=== PATIENT | male | born 1980 | race Two or more races ===

== ENCOUNTER 2020-03-29 01:04 | Emergency (ER) | payer OTHER ==
[~2020-03-29] VITALS: Ht 185.4 cm; Wt 90.7 kg
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
[2020-03-29] MEDS ORDERED: OLANZAPINE 5 MG TABLET ONE (01:39)
[2020-03-29] MEDS ORDERED: CEPHALEXIN MONOHYDRATE 500 MG CAPSULE PO ONE ×2 (01:39→01:41)
[2020-03-29 01:44] LABS: BASOPHILS # (AUTO) 0.2 /CMM (0.0-0.2); BASOPHILS % (AUTO) 2.3 % (0.0-2.0); EOSINOPHILS % (AUTO) 6.2 % (0.0-6.0); HEMATOCRIT 40 % (39-51); HEMOGLOBIN 13.5 g/dL (13.5-17.5); LYMPHOCYTES # (AUTO) 0.9 /CMM (0.8-4.8); LYMPHOCYTES % (AUTO) 11.1 % (20.0-44.0); MEAN CORPUSCULAR HGB CONC 33 g/dl (31.0-36.0); MEAN CORPUSCULAR VOLUME 93 fL (80-96); MONOCYTES # (AUTO) 0.4 /CMM (0.1-1.30); MONOCYTES % (AUTO) 4.8 % (2.0-12.0); NEUTROPHILS # (AUTO) 6.3 /CMM (1.8-8.9); NEUTROPHILS % (AUTO) 75.6 % (43.0-81.0); PLATELET COUNT (AUTO) 393 /CMM (150-450); RED BLOOD CELL COUNT(AUTO) 4.37 MIL/uL (4.5-6.0); WHITE BLOOD COUNT (AUTO) 8.3 K/uL (4.3-11.0)
[2020-03-29] MEDS: CEPHALEXIN MONOHYDRATE 500 MG CAPSULE PO ONE (01:46)
[2020-03-29] MEDS: OLANZAPINE 5 MG TABLET PO ONE (01:46)
[2020-03-29 01:51] LABS: CALCIUM, SERUM 8.5 mg/dL (8.5-10.1); CARBON DIOXIDE 30 mmol/L (21-32); CHLORIDE 105 mmol/L (98-107); GLUCOSE 90 mg/dL (74-106); POTASSIUM 4.4 mmol/L (3.5-5.1); SODIUM SERUM 142 mmol/L (136-145); UREA NITROGEN, BLOOD 25 mg/dL (7-18)
[2020-03-29 01:57] LABS: ALANINE AMINOTRANSFERASE 30 U/L (12-78); ALBUMIN 3.4 g/dL (3.4-5.0); ALCOHOL, BLOOD < 3 mg/dL (0-0); ALKALINE PHOSPHATASE 104 U/L (46-116); ASPARTATE AMINOTRANSFERASE 40 U/L (15-37); BILIRUBIN,DIRECT 0.1 mg/dL (0.0-0.2); BILIRUBIN,TOTAL 0.4 mg/dL (0.2-1.0); TOTAL PROTEIN, SERUM 6.9 g/dL (6.4-8.2)
[2020-03-29 02:01] LABS: ACETAMINOPHEN < 10 ug/ml (10-30)
--- NOTE | 2020-03-29 02:02 | NUR ---
PATIENT WALKED TO THE RESTROOM W/ STEADY GAIT.
--- NOTE | 2020-03-29 02:18 | NUR ---
URINE COLLECTED AND SENT TO THE LAB.
[2020-03-29 02:27] LABS: BILIRUBIN,URINE NEGATIVE (NEGATIVE); BLOOD, URINE NEGATIVE Ery/uL (NEGATIVE); COLOR,URINE YELLOW (YELLOW); LEUKOCYTE ESTERASE ,URINE NEGATIVE (NEGATIVE); NITRITE, URINE NEGATIVE (NEGATIVE); PROTEIN,URINE NEGATIVE (NEGATIVE); UGLUCOSE NEGATIVE (NEGATIVE)
--- NOTE | 2020-03-29 03:23 | NUR ---
CLINICAL PACKET FAXED TO [facility]
--- NOTE | 2020-03-29 03:41 | NUR ---
PATIENT AMBULATED TO THE RESTROOM WITH A STEADY GAIT.
--- NOTE | 2020-03-29 05:52 | NUR ---
PT RESTING COMFORTABLY IN BED. VITAL SIGNS STABLE. NO ACUTE DISTRESS NOTED AT THIS TIME. SITTER STILL AT BEDSIDE, WILL CONTINUE TO MONITOR
--- NOTE | 2020-03-29 09:04 | NUR ---
ASSESSED PT ON BED ASLEEP BUT EASILY AROUSABLE. V/S STABLE, KEPT RESTED AND COMFORTABLE. WILL CONTINUE TO MONITOR.
--- NOTE | 2020-03-29 12:26 | NUR ---
[facility] spoke with [facility] at [facility] regarding referral made for this patient. Per [facility], need more time to review clinicals. [facility] will call back with more information.
--- NOTE | 2020-03-29 12:56 | NUR ---
This SW contacted Lenny at [facility] ([facility]) regarding patient referral status. Per Lenny, a bed is being held for this patient. [facility] are needing more time for discharge. Once accepted, patient to be transferred to [facility] by ambulance.
--- NOTE | 2020-03-29 13:03 | NUR ---
FOLLOWED UP WITH [facility]. THEY ASKED FOR A REFAX OF CLINICALS.
--- NOTE | 2020-03-29 14:35 | NUR ---
ANTHONY FROM [facility] CALLED TO INFORM OF PT ACCEPTANCE TO UNIT [address]. DR ASHLEY ACCEPTED. CALL REPORT [phone] EXT [phone]
--- NOTE | 2020-03-29 14:42 | NUR ---
[facility] CALLED. ETA [phone]
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
--- NOTE | 2020-03-29 16:04 | NUR ---
FOLLOWED UP WITH [facility]. THE CREW IS 10MIN AWAY
[2020-03-29 16:39] VITALS: BP 128/88
== END 2020-03-29 16:40 ==
LOC: ER 01:07
DX: R45.851 Suicidal ideations (principal); M79.672 Pain in left foot; Z20.828 Contact with and (suspected) exposure to other viral communicable diseases; R78.4 Finding of other drugs of addictive potential in blood; Z59.0 Homelessness; F41.9 Anxiety disorder, unspecified; T63 Toxic effect of contact with venomous animals and plants
CPT/HCPCS: 36415; 80048; 80076; 80299; 80307; 80320; 81001; 85025; 87426; 99285; C9803; 81000-TC; G0480